=== PATIENT | male | born 1950 | race Caucasian/White ===

== ENCOUNTER 2017-02-17 10:14 | Emergency (ER) | payer OTHER ==
[~2017-02-17] VITALS: Ht 167.6 cm; Wt 50.8 kg
[2017-02-17 13:58] VITALS: BP 130/82
== END 2017-02-17 13:58 | disposition home or self-care (01) ==
LOC: ED 10:14
DX: M54.5 Low back pain (principal); N40.0 Benign prostatic hyperplasia without lower urinary tract symptoms
CPT/HCPCS: J1885; J3010; Q0162

== ENCOUNTER 2017-02-18 16:27 | Emergency (ER) | payer OTHER ==
[~2017-02-18] VITALS: Ht 167.6 cm; Wt 50.3 kg
[2017-02-18 19:40] VITALS: BP 114/64
== END 2017-02-18 19:41 | disposition home or self-care (01) ==
LOC: ED 16:27
DX: G89.29 Other chronic pain (principal); M54.9 Dorsalgia, unspecified

== ENCOUNTER → 2017-03-16 | Outpatient (CLI) | payer OTHER | END | disposition home or self-care (01) | LOC: LB 16:33 | DX: N13.30 Unspecified hydronephrosis (principal); R31.0 Gross hematuria | CPT/HCPCS: 84153 ==

== ENCOUNTER → 2017-04-15 | Outpatient (CLI) | payer OTHER ==
[2017-04-15 17:43] LABS: PLATELET COUNT 202 x10^3mcL (130-400); RED CELL DISTRIBUTION WIDTH 14.1 % (11.5-14.5)
[2017-04-15 17:58] LABS: CALCIUM 8.6 mg/dL (8.5-10.1); CHLORIDE SERUM 100 mmol/L (98-107); CREATININE SERUM 0.7 mg/dL (0.7-1.3); GFR1 > 60 mL/min; GLUCOSE SERUM 114 mg/dL (74-106); POTASSIUM SERUM 4.6 mmol/L (3.5-5.1); SODIUM SERUM 136 mmol/L (136-145)
[2017-04-15 18:11] LABS: BAND NEUTROPHIL 6 % (0-10); BASOPHIL 0 % (0-2); MONOCYTE 5 % (0-7); SEGMENTED NEUTROPHILS 65 % (37-75)
== END | disposition home or self-care (01) ==
LOC: LB 16:54
DX: N32.89 Other specified disorders of bladder (principal); N32.0 Bladder-neck obstruction

== ENCOUNTER → 2017-05-12 | Outpatient (CLI) | payer OTHER ==
[2017-05-12 17:37] LABS: PLATELET COUNT 216 x10^3mcL (130-400)
[2017-05-12 17:57] LABS: RED CELL DISTRIBUTION WIDTH 14.8 % (11.5-14.5)
[2017-05-12 18:04] LABS: ALKALINE PHOSPHATASE 123 U/L (46-116); ALT/SGPT 21 U/L (16-63); AST/SGOT 17 U/L (15-37); BILIRUBIN TOTAL 0.1 mg/dL (0.20-1.00); CALCIUM 8.6 mg/dL (8.5-10.1); CARBON DIOXIDE 34.4 mmol/L (21-32); CHLORIDE SERUM 100 mmol/L (98-107); CREATININE SERUM 0.8 mg/dL (0.7-1.3); GFR1 > 60 mL/min; GLUCOSE SERUM 129 mg/dL (74-106); POTASSIUM SERUM 4.9 mmol/L (3.5-5.1); SODIUM SERUM 136 mmol/L (136-145); TOTAL PROTEIN, SERUM 7.1 g/dL (6.4-8.2)
[2017-05-12 18:34] LABS: BAND NEUTROPHIL 4 % (0-10); BASOPHIL 0 % (0-2); MONOCYTE 13 % (0-7); SEGMENTED NEUTROPHILS 59 % (37-75)
== END | disposition home or self-care (01) ==
LOC: LB 17:09
DX: C09.9 Malignant neoplasm of tonsil, unspecified (principal)

== ENCOUNTER 2017-05-26 07:21 | Day surgery (SDC) | payer OTHER ==
[~2017-05-26] VITALS: Ht 167.6 cm; Wt 50.8 kg
[2017-05-26 07:34] VITALS: BP 116/75
[2017-05-26 12:42] VITALS: BP 131/78
== END 2017-05-26 11:20 | disposition home or self-care (01) ==
LOC: GI 07:21 → OR 09:30 → GI 09:30
PROVIDERS: Internal Medicine Gastroenterology
PROC: 0D718ZZ Dilation of Upper Esophagus, Via Natural or Artificial Opening Endoscopic (ICD-10-PCS; principal; 2017-05-26 09:30)
DX: K22.2 Esophageal obstruction (principal); K29.51 Unspecified chronic gastritis with bleeding; C14.0 Malignant neoplasm of pharynx, unspecified; Z93.1 Gastrostomy status; W88.1XXA Exposure to radioactive isotopes, initial encounter; Y92.538 Other ambulatory health services establishments as the place of occurrence of the external cause
CPT/HCPCS: 43235; J1200; J1610; J2250; J2310; J3010; J3490

== ENCOUNTER → 2017-07-27 | Outpatient (CLI) | payer OTHER ==
[2017-07-27 18:01] LABS: ALKALINE PHOSPHATASE 117 U/L (46-116); ALT/SGPT 18 U/L (16-63); AST/SGOT 17 U/L (15-37); BILIRUBIN TOTAL 0.24 mg/dL (0.20-1.00); CALCIUM 8.5 mg/dL (8.5-10.1); CARBON DIOXIDE 34.1 mmol/L (21-32); CHLORIDE SERUM 101 mmol/L (98-107); CREATININE SERUM 0.6 mg/dL (0.7-1.3); GFR1 > 60 mL/min; GLUCOSE SERUM 105 mg/dL (74-106); POTASSIUM SERUM 4.8 mmol/L (3.5-5.1); SODIUM SERUM 135 mmol/L (136-145); TOTAL PROTEIN, SERUM 7.5 g/dL (6.4-8.2)
[2017-07-27 18:02] LABS: ALBUMIN 3.1 g/dL (3.4-5.0)
[2017-07-27 18:47] LABS: BASOPHIL % 0.1 % (0-2); PLATELET COUNT 145 x10^3mcL (130-400); RED CELL DISTRIBUTION WIDTH 14.6 % (11.5-14.5)
== END | disposition home or self-care (01) ==
LOC: LB 17:13
DX: Z85.89 Personal history of malignant neoplasm of other organs and systems (principal); E43 Unspecified severe protein-calorie malnutrition; K22.2 Esophageal obstruction

== ENCOUNTER 2017-09-08 11:42 | Inpatient (IN) | payer OTHER ==
[~2017-09-08] VITALS: Ht 167.6 cm; Wt 47.6 kg
[2017-09-08] VITALS (7 sets, daily range): BP systolic 112–137; BP diastolic 66–85; Ht 167.6 cm; Wt 47.6 kg
[2017-09-08 13:00] LABS: PLATELET COUNT 195 x10^3mcL (130-400); RED CELL DISTRIBUTION WIDTH 14.2 % (11.5-14.5)
[2017-09-08 13:38] LABS: BAND NEUTROPHIL 8 % (0-10); MONOCYTE 12 % (0-7); SEGMENTED NEUTROPHILS 56 % (37-75); rbc morphology (normal/abnorm) ABNORMAL (NORMAL)
[2017-09-08 13:39] LABS: PLATELET MORPHOLOGY PLATELETS DECREASED
[2017-09-08 18:45] LABS: MAGNESIUM 2.1 mg/dL (1.8-2.4); PHOSPHOROUS 3.7 mg/dL (2.5-4.9)
[2017-09-08 18:59] LABS: FREE T4 1.02 ng/dL (0.76-1.46); FREE THYROXINE INDEX 2.6 ug/dL (1.4-4.5); T4(THYROXINE) 7.3 ug/dL (4.7-13.3)
[2017-09-08 19:23] LABS: T3 TOTAL 1.15 ng/mL
[2017-09-08] MEDS ORDERED: NOR10T PO (20:11)
[2017-09-08] MEDS ORDERED: MORPHINE SULFAT30 M2 PO (20:12)
[2017-09-08 21:48] LABS: microscopic required? NO
[2017-09-08 21:56] LABS: urine erythrocyte NEGATIVE (NEGATIVE)
[2017-09-09 02:40] LABS: CALCIUM 8.7 mg/dL (8.5-10.1); CARBON DIOXIDE 30.7 mmol/L (21-32); CHLORIDE SERUM 102 mmol/L (98-107); CREATININE SERUM 0.6 mg/dL (0.7-1.3); GFR1 > 60 mL/min; GLUCOSE SERUM 99 mg/dL (74-106); PHOSPHOROUS 3.6 mg/dL (2.5-4.9); POTASSIUM SERUM 4.6 mmol/L (3.5-5.1); SODIUM SERUM 136 mmol/L (136-145)
[2017-09-09 03:08] LABS: PLATELET COUNT 196 x10^3mcL (130-400); RED CELL DISTRIBUTION WIDTH 13.1 % (11.5-14.5)
[2017-09-09 03:15] LABS: BASOPHIL % 2.7 % (0-2)
[2017-09-09 05:30] VITALS: BP 132/81
[2017-09-09 10:05] VITALS: BP 125/73
[2017-09-09 13:40] VITALS: BP 101/61
[2017-09-09 17:20] VITALS: BP 99/58
[2017-09-09 22:07] VITALS: BP 95/50
[2017-09-10 05:59] VITALS: BP 127/69
[2017-09-10 06:55] LABS: CALCIUM 8.6 mg/dL (8.5-10.1); CARBON DIOXIDE 31.2 mmol/L (21-32); CHLORIDE SERUM 102 mmol/L (98-107); CREATININE SERUM 0.5 mg/dL (0.7-1.3); GFR1 > 60 mL/min; GLUCOSE SERUM 103 mg/dL (74-106); POTASSIUM SERUM 4.5 mmol/L (3.5-5.1); SODIUM SERUM 136 mmol/L (136-145)
[2017-09-10 07:07] LABS: BASOPHIL % 0.1 % (0-2); PLATELET COUNT 173 x10^3mcL (130-400); RED CELL DISTRIBUTION WIDTH 13.7 % (11.5-14.5)
[2017-09-10] MEDS ORDERED: LIPI10 PO (09:33)
[2017-09-10 10:11] VITALS: BP 117/69
[2017-09-10 10:15] VITALS: BP 117/69
[2017-09-10 10:38] VITALS: BP 117/69
[2017-09-10] MEDS ORDERED: SYN25 PO (11:31)
== END 2017-09-10 13:14 | disposition home or self-care (01) | DRG 201 ==
LOC: CT 11:42 → DU 17:39
PROVIDERS: ADMIT Family Medicine
PROC: 0W9930Z Drainage of Right Pleural Cavity with Drainage Device, Percutaneous Approach (ICD-10-PCS; principal; 2017-09-08)
DX: J93.9 Pneumothorax, unspecified (principal); R91.8 Other nonspecific abnormal finding of lung field; J44.9 Chronic obstructive pulmonary disease, unspecified; E02 Subclinical iodine-deficiency hypothyroidism; D64.9 Anemia, unspecified; C09.9 Malignant neoplasm of tonsil, unspecified; E78.5 Hyperlipidemia, unspecified; D72.819 Decreased white blood cell count, unspecified
CPT/HCPCS: 32405; 83880; 84439; 94150; A7042; C1729; J2001; J2270; J7030; J7620; Q0092

== ENCOUNTER → 2017-09-23 | Outpatient (CLI) | payer OTHER ==
[~2017-09-23] MED LIST: LIPI10 PO; MORPHINE SULFAT30 M2 PO; NOR10T PO; SYN25 PO
[2017-09-23 12:22] LABS: PLATELET COUNT 270 x10^3mcL (130-400); RED CELL DISTRIBUTION WIDTH 14.1 % (11.5-14.5)
[2017-09-23 12:38] LABS: ALKALINE PHOSPHATASE 99 U/L (46-116); ALT/SGPT 34 U/L (16-63); AST/SGOT 27 U/L (15-37); BILIRUBIN TOTAL 0.18 mg/dL (0.20-1.00); CALCIUM 8.6 mg/dL (8.5-10.1); CARBON DIOXIDE 33.1 mmol/L (21-32); CHLORIDE SERUM 103 mmol/L (98-107); CHOLESTEROL 135 mg/dL (<200); CHOLESTEROL/HDL RATIO 2.4; CREATININE SERUM 0.6 mg/dL (0.7-1.3); FREE T4 0.84 ng/dL (0.76-1.46); GFR1 > 60 mL/min; GLUCOSE SERUM 90 mg/dL (74-106); HDL CHOLESTEROL 56 mg/dL (40-60); POTASSIUM SERUM 4.6 mmol/L (3.5-5.1); SODIUM SERUM 141 mmol/L (136-145); TOTAL PROTEIN, SERUM 7.6 g/dL (6.4-8.2); TRIGLYCERIDES 84 mg/dL (<150)
[2017-09-23 12:39] LABS: ALBUMIN 2.9 g/dL (3.4-5.0); BILIRUBIN DIRECT 0.04 mg/dL (0.0-0.2)
[2017-09-23 14:04] LABS: BAND NEUTROPHIL 6 % (0-10); BASOPHIL 2 % (0-2); MONOCYTE 20 % (0-7); SEGMENTED NEUTROPHILS 48 % (37-75); rbc morphology (normal/abnorm) ABNORMAL (NORMAL)
[2017-09-23 14:05] LABS: PLATELET MORPHOLOGY PLATELETS DECREASED
== END | disposition home or self-care (01) ==
LOC: CT 11:30
PROVIDERS: Internal Medicine
PROC: BW28ZZZ Computerized Tomography (CT Scan) of Head (ICD-10-PCS; principal; 2017-09-23)
DX: Z00.00 Encounter for general adult medical examination without abnormal findings (principal); J93.9 Pneumothorax, unspecified; R42 Dizziness and giddiness; E03.9 Hypothyroidism, unspecified; R53.83 Other fatigue
CPT/HCPCS: 84439

== ENCOUNTER → 2017-10-14 | Outpatient (CLI) | payer OTHER | END | disposition home or self-care (01) | LOC: LB 17:15 | DX: C79.49 Secondary malignant neoplasm of other parts of nervous system (principal); E78.6 Lipoprotein deficiency; E03.9 Hypothyroidism, unspecified ==

== ENCOUNTER 2017-12-09 12:20 | Emergency (ER) | payer OTHER ==
[~2017-12-09] VITALS: Ht 167.6 cm; Wt 57.3 kg
[2017-12-09 12:37] VITALS: Ht 167.6 cm; Wt 57.3 kg
[2017-12-09 16:42] VITALS: BP 136/70
== END 2017-12-09 16:42 | disposition home or self-care (01) ==
LOC: ED 12:20
DX: K94.23 Gastrostomy malfunction (principal); T85.848A Pain due to other internal prosthetic devices, implants and grafts, initial encounter

== ENCOUNTER 2017-12-11 06:26 | Day surgery (SDC) | payer OTHER ==
[~2017-12-11] VITALS: Ht 167.6 cm; Wt 58.0 kg
[2017-12-11 06:38] VITALS: BP 126/82
[2017-12-11 10:10] VITALS: BP 110/72
== END 2017-12-11 11:45 | disposition home or self-care (01) ==
LOC: GI 06:26 → OR 08:30 → GI 11:45
PROVIDERS: Internal Medicine Gastroenterology
PROC: 0DH63UZ Insertion of Feeding Device into Stomach, Percutaneous Approach (ICD-10-PCS; principal; 2017-12-11 07:30)
PROC: 0D758ZZ Dilation of Esophagus, Via Natural or Artificial Opening Endoscopic (ICD-10-PCS; 2017-12-11 07:30)
PROC: 0DB58ZX Excision of Esophagus, Via Natural or Artificial Opening Endoscopic, Diagnostic (ICD-10-PCS; 2017-12-11 07:30)
DX: Z43.1 Encounter for attention to gastrostomy (principal); B37.81 Candidal esophagitis; K22.2 Esophageal obstruction; Z85.818 Personal history of malignant neoplasm of other sites of lip, oral cavity, and pharynx; Z92.3 Personal history of irradiation; Y84.2 Radiological procedure and radiotherapy as the cause of abnormal reaction of the patient, or of later complication, without mention of misadventure at the time of the procedure
CPT/HCPCS: 43235; 43760; C1769; J1200; J1610; J2250; J2310; J3010; J3490

== ENCOUNTER → 2017-12-21 | Day surgery (SDC) | payer OTHER | END | disposition home or self-care (01) | LOC: GI 06:49 → OR 07:30 | DX: Z43.1 Encounter for attention to gastrostomy (principal) ==

== ENCOUNTER 2017-12-22 10:43 | Day surgery (SDC) | payer OTHER ==
[~2017-12-22] VITALS: Ht 167.6 cm; Wt 58.0 kg
[2017-12-22 10:58] VITALS: BP 143/85
[2017-12-22 11:58] VITALS: BP 122/77
== END 2017-12-22 12:20 | disposition home or self-care (01) ==
LOC: GI 10:43
PROVIDERS: Internal Medicine Gastroenterology
PROC: 0D20XUZ Change Feeding Device in Upper Intestinal Tract, External Approach (ICD-10-PCS; principal; 2017-12-22 11:00)
DX: Z43.1 Encounter for attention to gastrostomy (principal); R13.10 Dysphagia, unspecified; Z85.818 Personal history of malignant neoplasm of other sites of lip, oral cavity, and pharynx; Z92.21 Personal history of antineoplastic chemotherapy; Z92.3 Personal history of irradiation; Z68.20 Body mass index [BMI] 20.0-20.9, adult
CPT/HCPCS: 43760

== ENCOUNTER → 2018-01-06 | Outpatient (CLI) | payer OTHER ==
[2018-01-06 08:12] LABS: BASOPHIL % 0.3 % (0-2); PLATELET COUNT 221 x10^3mcL (130-400)
[2018-01-06 08:28] LABS: ALBUMIN 3.1 g/dL (3.4-5.0); ALKALINE PHOSPHATASE 81 U/L (46-116); ALT/SGPT 19 U/L (16-63); AST/SGOT 23 U/L (15-37); BILIRUBIN TOTAL 0.29 mg/dL (0.20-1.00); CALCIUM 8.9 mg/dL (8.5-10.1); CARBON DIOXIDE 29.9 mmol/L (21-32); CHLORIDE SERUM 102 mmol/L (98-107); CREATININE SERUM 0.7 mg/dL (0.7-1.3); GFR1 > 60 mL/min; GLUCOSE SERUM 94 mg/dL (74-106); POTASSIUM SERUM 4.4 mmol/L (3.5-5.1); SODIUM SERUM 138 mmol/L (136-145); TOTAL PROTEIN, SERUM 7.5 g/dL (6.4-8.2)
== END | disposition home or self-care (01) ==
LOC: LB 07:27
DX: Z85.89 Personal history of malignant neoplasm of other organs and systems (principal); E43 Unspecified severe protein-calorie malnutrition; K22.2 Esophageal obstruction; C34.01 Malignant neoplasm of right main bronchus; Z93.1 Gastrostomy status; Z92.3 Personal history of irradiation; Z85.118 Personal history of other malignant neoplasm of bronchus and lung

== ENCOUNTER → 2018-02-05 | Outpatient (CLI) | payer OTHER ==
[2018-02-05 12:17] LABS: BASOPHIL % 0.3 % (0-2); PLATELET COUNT 174 x10^3mcL (130-400)
[2018-02-05 12:22] LABS: RED CELL DISTRIBUTION WIDTH 14.6 % (11.5-14.5)
[2018-02-05 12:37] LABS: ALBUMIN 3.3 g/dL (3.4-5.0); ALKALINE PHOSPHATASE 83 U/L (46-116); ALT/SGPT 20 U/L (16-63); AST/SGOT 22 U/L (15-37); BILIRUBIN TOTAL 0.3 mg/dL (0.20-1.00); CALCIUM 8.9 mg/dL (8.5-10.1); CARBON DIOXIDE 30.5 mmol/L (21-32); CHLORIDE SERUM 100 mmol/L (98-107); CREATININE SERUM 0.7 mg/dL (0.7-1.3); GFR1 > 60 mL/min; GLUCOSE SERUM 100 mg/dL (74-106); POTASSIUM SERUM 4.5 mmol/L (3.5-5.1); SODIUM SERUM 136 mmol/L (136-145); TOTAL PROTEIN, SERUM 7.5 g/dL (6.4-8.2)
== END | disposition home or self-care (01) ==
LOC: LB 11:50
DX: C34.01 Malignant neoplasm of right main bronchus (principal); Z85.89 Personal history of malignant neoplasm of other organs and systems; K22.2 Esophageal obstruction; E43 Unspecified severe protein-calorie malnutrition; Z93.1 Gastrostomy status; Z85.118 Personal history of other malignant neoplasm of bronchus and lung; Z92.3 Personal history of irradiation; R59.0 Localized enlarged lymph nodes

== ENCOUNTER → 2018-02-18 | Outpatient (CLI) | payer OTHER ==
[2018-02-18 11:24] LABS: BASOPHIL % 0.3 % (0-2); PLATELET COUNT 148 x10^3mcL (130-400); RED CELL DISTRIBUTION WIDTH 13.7 % (11.5-14.5)
[2018-02-18 11:41] LABS: ALKALINE PHOSPHATASE 91 U/L (46-116); ALT/SGPT 21 U/L (16-63); AST/SGOT 18 U/L (15-37); BILIRUBIN TOTAL 0.44 mg/dL (0.20-1.00); CALCIUM 8.5 mg/dL (8.5-10.1); CARBON DIOXIDE 30.3 mmol/L (21-32); CHLORIDE SERUM 103 mmol/L (98-107); CREATININE SERUM 0.8 mg/dL (0.7-1.3); GFR1 > 60 mL/min; GLUCOSE SERUM 100 mg/dL (74-106); MAGNESIUM 1.7 mg/dL (1.8-2.4); POTASSIUM SERUM 3.8 mmol/L (3.5-5.1); SODIUM SERUM 142 mmol/L (136-145); TOTAL PROTEIN, SERUM 7.2 g/dL (6.4-8.2)
[2018-02-18 11:43] LABS: ALBUMIN 3.3 g/dL (3.4-5.0)
== END | disposition home or self-care (01) ==
LOC: LB 10:58
DX: C34.01 Malignant neoplasm of right main bronchus (principal); E43 Unspecified severe protein-calorie malnutrition; K22.2 Esophageal obstruction; R59.0 Localized enlarged lymph nodes; Z85.89 Personal history of malignant neoplasm of other organs and systems; Z93.1 Gastrostomy status; Z92.3 Personal history of irradiation; Z85.118 Personal history of other malignant neoplasm of bronchus and lung

== ENCOUNTER → 2018-02-24 | Outpatient (CLI) | payer OTHER ==
[2018-02-24 15:14] LABS: ALKALINE PHOSPHATASE 94 U/L (46-116); ALT/SGPT 21 U/L (16-63); AST/SGOT 18 U/L (15-37); BILIRUBIN TOTAL 0.1 mg/dL (0.20-1.00); CALCIUM 8.5 mg/dL (8.5-10.1); CARBON DIOXIDE 31.2 mmol/L (21-32); CHLORIDE SERUM 101 mmol/L (98-107); CREATININE SERUM 0.6 mg/dL (0.7-1.3); GFR1 > 60 mL/min; GLUCOSE SERUM 107 mg/dL (74-106); SODIUM SERUM 133 mmol/L (136-145); TOTAL PROTEIN, SERUM 6.9 g/dL (6.4-8.2)
[2018-02-24 15:16] LABS: ALBUMIN 3.1 g/dL (3.4-5.0)
[2018-02-24 15:38] LABS: BASOPHIL % 0.3 % (0-2); PLATELET COUNT 125 x10^3mcL (130-400); RED CELL DISTRIBUTION WIDTH 13.6 % (11.5-14.5)
== END | disposition home or self-care (01) ==
LOC: LB 14:24
DX: C34.01 Malignant neoplasm of right main bronchus (principal); E43 Unspecified severe protein-calorie malnutrition; K22.2 Esophageal obstruction; R59.0 Localized enlarged lymph nodes; Z85.89 Personal history of malignant neoplasm of other organs and systems; Z93.1 Gastrostomy status; Z92.3 Personal history of irradiation; Z85.118 Personal history of other malignant neoplasm of bronchus and lung

== ENCOUNTER → 2018-03-09 | Outpatient (CLI) | payer OTHER ==
[2018-03-09 17:57] LABS: CALCIUM 7.8 mg/dL (8.5-10.1); CARBON DIOXIDE 33.5 mmol/L (21-32); CHLORIDE SERUM 102 mmol/L (98-107); CREATININE SERUM 0.5 mg/dL (0.7-1.3); GFR1 > 60 mL/min; GLUCOSE SERUM 123 mg/dL (74-106); PLATELET COUNT 308 x10^3mcL (130-400); POTASSIUM SERUM 4.2 mmol/L (3.5-5.1); SODIUM SERUM 136 mmol/L (136-145)
[2018-03-09 17:59] LABS: RED CELL DISTRIBUTION WIDTH 15.6 % (11.5-14.5)
[2018-03-09 18:11] LABS: BAND NEUTROPHIL 1 % (0-10); BASOPHIL 0 % (0-2); MONOCYTE 4 % (0-7); SEGMENTED NEUTROPHILS 86 % (37-75); rbc morphology (normal/abnorm) ABNORMAL (NORMAL)
== END | disposition home or self-care (01) ==
LOC: LB 17:37
DX: C34.01 Malignant neoplasm of right main bronchus (principal); C78.01 Secondary malignant neoplasm of right lung; E43 Unspecified severe protein-calorie malnutrition; K22.2 Esophageal obstruction; R19.7 Diarrhea, unspecified; R59.0 Localized enlarged lymph nodes; Z85.89 Personal history of malignant neoplasm of other organs and systems; Z93.1 Gastrostomy status; Z92.3 Personal history of irradiation; Z85.118 Personal history of other malignant neoplasm of bronchus and lung

== ENCOUNTER 2018-03-12 06:58 | Day surgery (SDC) | payer OTHER ==
[~2018-03-12] VITALS: Ht 167.6 cm; Wt 58.0 kg
[2018-03-12 07:20] VITALS: BP 133/78
[2018-03-12 10:13] VITALS: BP 108/65
== END 2018-03-12 11:20 | disposition home or self-care (01) ==
LOC: DS 06:58 → GI 06:58 → OR 08:30 → GI 11:20
PROVIDERS: Internal Medicine Gastroenterology
PROC: 0DH63UZ Insertion of Feeding Device into Stomach, Percutaneous Approach (ICD-10-PCS; 2018-03-12)
PROC: 0DB68ZX Excision of Stomach, Via Natural or Artificial Opening Endoscopic, Diagnostic (ICD-10-PCS; principal; 2018-03-12 08:30)
PROC: 0D718ZZ Dilation of Upper Esophagus, Via Natural or Artificial Opening Endoscopic (ICD-10-PCS; 2018-03-12 08:30)
DX: K94.23 Gastrostomy malfunction (principal); K29.70 Gastritis, unspecified, without bleeding; B96.81 Helicobacter pylori [H. pylori] as the cause of diseases classified elsewhere; K22.2 Esophageal obstruction; C14.0 Malignant neoplasm of pharynx, unspecified; Y83.3 Surgical operation with formation of external stoma as the cause of abnormal reaction of the patient, or of later complication, without mention of misadventure at the time of the procedure; Y92.009 Unspecified place in unspecified non-institutional (private) residence as the place of occurrence of the external cause
CPT/HCPCS: 43235; J0690; J1200; J1610; J2250; J2310; J3010; J3490

== ENCOUNTER → 2018-03-17 | Outpatient (CLI) | payer OTHER ==
[2018-03-17 17:31] LABS: BASOPHIL % 0.2 % (0-2)
[2018-03-17 17:33] LABS: PLATELET COUNT 129 x10^3mcL (130-400); RED CELL DISTRIBUTION WIDTH 17.5 % (11.5-14.5)
[2018-03-17 17:43] LABS: CARBON DIOXIDE 32.8 mmol/L (21-32); CHLORIDE SERUM 102 mmol/L (98-107); CREATININE SERUM 0.7 mg/dL (0.7-1.3); GFR1 > 60 mL/min; GLUCOSE SERUM 98 mg/dL (74-106); POTASSIUM SERUM 4.2 mmol/L (3.5-5.1); SODIUM SERUM 139 mmol/L (136-145)
[2018-03-17 17:49] LABS: ALBUMIN 3.3 g/dL (3.4-5.0); ALKALINE PHOSPHATASE 108 U/L (46-116); ALT/SGPT 38 U/L (16-63); AST/SGOT 31 U/L (15-37); BILIRUBIN TOTAL 0.4 mg/dL (0.20-1.00); TOTAL PROTEIN, SERUM 7.2 g/dL (6.4-8.2)
== END | disposition home or self-care (01) ==
LOC: LB 16:58
DX: C34.01 Malignant neoplasm of right main bronchus (principal); C78.01 Secondary malignant neoplasm of right lung; E43 Unspecified severe protein-calorie malnutrition; K22.2 Esophageal obstruction; R59.0 Localized enlarged lymph nodes; R19.7 Diarrhea, unspecified; Z85.89 Personal history of malignant neoplasm of other organs and systems; Z93.1 Gastrostomy status; Z92.3 Personal history of irradiation; Z85.118 Personal history of other malignant neoplasm of bronchus and lung

== ENCOUNTER → 2018-04-07 | Outpatient (CLI) | payer OTHER ==
[2018-04-07 15:55] LABS: BASOPHIL % 0.3 % (0-2)
[2018-04-07 16:01] LABS: ALKALINE PHOSPHATASE 119 U/L (46-116); ALT/SGPT 16 U/L (16-63); AST/SGOT 13 U/L (15-37); BILIRUBIN DIRECT 0.05 mg/dL (0.0-0.2); BILIRUBIN TOTAL 0.2 mg/dL (0.20-1.00); CALCIUM 8.2 mg/dL (8.5-10.1); CARBON DIOXIDE 33.6 mmol/L (21-32); CHLORIDE SERUM 108 mmol/L (98-107); CREATININE SERUM 0.6 mg/dL (0.7-1.3); GFR1 > 60 mL/min; GLUCOSE SERUM 113 mg/dL (74-106); POTASSIUM SERUM 4.6 mmol/L (3.5-5.1); SODIUM SERUM 144 mmol/L (136-145); TOTAL PROTEIN, SERUM 6.6 g/dL (6.4-8.2)
[2018-04-07 16:15] LABS: ALBUMIN 2.9 g/dL (3.4-5.0)
[2018-04-07 16:18] LABS: PLATELET COUNT 36 x10^3mcL (130-400); RED CELL DISTRIBUTION WIDTH 15.4 % (11.5-14.5)
== END | disposition home or self-care (01) ==
LOC: LB 15:25
DX: C34.01 Malignant neoplasm of right main bronchus (principal); C78.01 Secondary malignant neoplasm of right lung; K22.2 Esophageal obstruction; E43 Unspecified severe protein-calorie malnutrition; R59.0 Localized enlarged lymph nodes; R19.7 Diarrhea, unspecified; Z85.89 Personal history of malignant neoplasm of other organs and systems; Z93.1 Gastrostomy status; Z92.3 Personal history of irradiation; Z85.118 Personal history of other malignant neoplasm of bronchus and lung

== ENCOUNTER → 2018-05-14 | Outpatient (CLI) | payer OTHER ==
[2018-05-14 15:07] LABS: CALCIUM 8.7 mg/dL (8.5-10.1); CARBON DIOXIDE 30.6 mmol/L (21-32); CHLORIDE SERUM 103 mmol/L (98-107); CREATININE SERUM 0.9 mg/dL (0.7-1.3); GFR1 > 60 mL/min; GLUCOSE SERUM 115 mg/dL (74-106); POTASSIUM SERUM 3.9 mmol/L (3.5-5.1); SODIUM SERUM 141 mmol/L (136-145)
[2018-05-14 16:18] LABS: BASOPHIL % 0.1 % (0-2); PLATELET COUNT 261 x10^3mcL (130-400)
[2018-05-14 16:19] LABS: RED CELL DISTRIBUTION WIDTH 18.8 % (11.5-14.5)
== END | disposition home or self-care (01) ==
LOC: LB 14:42
PROVIDERS: Internal Medicine
DX: C78.01 Secondary malignant neoplasm of right lung (principal)